=== PATIENT | male | born 1995 | race Caucasian/White ===

== ENCOUNTER 2017-09-05 14:56 | Emergency (ER) | payer BC ==
[~2017-09-05] VITALS: Ht 167.6 cm; Wt 52.5 kg
[2017-09-05] MEDS ORDERED: LIDOcaine 1% 30ml preserv. free vial IJ ONE (16:15)
[2017-09-05] MEDS ORDERED: TETanus/Pertussis (Acell)/Diphther VAC/PF (Tdap-Adult) 0.5ml syringe IM ONE (16:15)
[2017-09-05] MEDS ORDERED: LIDOcaine 1% (10mg/ml) 2ml vial SQ ONE (16:35)
[2017-09-05 18:00] VITALS: BP 118/76
== END 2017-09-05 18:07 | disposition home or self-care (01) ==
LOC: ER 14:57
DX: S61.011A Laceration without foreign body of right thumb without damage to nail, initial encounter (principal); W26.8XXA Contact with other sharp object(s), not elsewhere classified, initial encounter; Y93.89 Activity, other specified; Y92.89 Other specified places as the place of occurrence of the external cause; Y99.8 Other external cause status
CPT/HCPCS: 12001; 90471; 90715; 99284; A6449; J3490